=== PATIENT | female | born 1975 | race Caucasian/White ===

== ENCOUNTER → 2017-06-16 | Outpatient (CLI) | payer BC | LOC: RAD 09:57 | PROVIDERS: ATTEND Family Medicine | DX: Z12.31 Encounter for screening mammogram for malignant neoplasm of breast (principal) | CPT/HCPCS: 77067 ==

== ENCOUNTER → 2018-11-16 | Outpatient (CLI) | payer BC ==
--- NOTE | 2018-11-16 18:12 | Diagnostic Imaging Report ---
INDICATION: Routine screening. Comparison is made with prior mammograms from 06/16/2017 and 06/13/2016. 2-D and 3-D bilateral screening mammography was performed with computer-aided Detection (CAD) system. FINDINGS: Both breasts are heterogeneously dense, limiting the sensitivity of mammography. There is a nodular density identified in the central left breast at the nipple line on MLO view. This appears to be near the nipple line on the CC view as well, best seen on CC tomographic image 25. Additional views are recommended. Right breast is unremarkable. No suspicious calcifications are seen. IMPRESSION: Left breast density. Additional views are recommended for further evaluation. ACR BI-RADS Category 0: Incomplete. (Needs additional imaging evaluation). Result letter will be mailed to the patient. Note: At least 10% of breast cancer is not imaged by mammography. Dictated by: Dictated on workstation # [id number]
== END ==
LOC: RAD 15:23
PROVIDERS: ATTEND Family Medicine
DX: Z12.31 Encounter for screening mammogram for malignant neoplasm of breast (principal); R92.8 Other abnormal and inconclusive findings on diagnostic imaging of breast
CPT/HCPCS: 77067

== ENCOUNTER → 2018-11-24 | Outpatient (CLI) | payer BC ==
--- NOTE | 2018-11-24 19:16 | Diagnostic Imaging Report ---
INDICATION: Left breast density. Study was performed for further evaluation. COMPARISON: Correlation is made with diagnostic mammogram of earlier the same day. EXAMINATION: Limited left breast ultrasound. FINDINGS: Sonographic interrogation of the left breast was performed. No sonographic abnormality is seen. No solid or cystic mass is identified. IMPRESSION: No sonography abnormality is seen. A nodular density in the far posterior left breast at the nipple line does have benign features but followup left mammogram in six months is recommended to show continued stability. ACR BI-RADS Category 3: Probably benign findings. Result letter will be mailed to the patient. Note: At least 10% of breast cancer is not imaged by mammography. Dictated by: Dictated on workstation # [id number]
--- NOTE | 2018-11-24 19:45 | Diagnostic Imaging Report ---
INDICATION: Left breast density. Patient presents for additional views. Correlation is made with screening mammogram from 11/16/2018. Unilateral left 2-D and 3-D diagnostic mammography was performed including spot compression CC and ML views as well as conventional 90 degree lateral view. The current study was also evaluated with a Computer Aided Detection (CAD) system. FINDINGS: The density noted centrally in the left breast on MLO view appears to resolved with additional views and most likely represented superimposed tissue. Circumscribed density in the far posterior left breast near the chest wall at the nipple line on both the CC and MLO projection is present and may represent a small cluster of cysts. Ultrasound of this area is recommended. No suspicious calcifications are seen. IMPRESSION: 1. Density in the central left breast appears to resolved and most likely represents superimposed tissue. 2. Circumscribed perhaps a small cluster of cysts. Further evaluation of this area with ultrasound is recommended and will be performed today. ACR BI-RADS Category 0: Incomplete. (Needs additional imaging evaluation). Result letter will be mailed to the patient. Note: At least 10% of breast cancer is not imaged by mammography. Dictated by: Dictated on workstation # [id number]
== END ==
LOC: RAD 14:16
PROVIDERS: ATTEND Family Medicine
DX: R92.2 Inconclusive mammogram (principal)
CPT/HCPCS: 76642

== ENCOUNTER → 2019-05-05 | Outpatient (CLI) | payer BC ==
--- NOTE | 2019-05-05 13:21 | Diagnostic Imaging Report ---
PROCEDURE: US Thyroid. TECHNIQUE: Multiple real-time grayscale images were obtained of the thyroid in various projections. INDICATION: Enlarged thyroid. FINDINGS: The right lobe of the thyroid measures 5.4 x 1.6 1.9 cm and the left lobe measures 5.7 x 1.6 x 1.5 cm. Both lobes appear to be fairly homogeneous and are without evidence of discrete mass. There are two circumscribed hypoechoic nodules located within the isthmus. Each nodule measures approximately 5 mm in size. No dominant thyroid mass is identified. IMPRESSION: Subcentimeter isthmus nodules. The study is otherwise unremarkable. Dictated by: Dictated on workstation # [id number]
--- NOTE | 2019-05-05 20:23 | Diagnostic Imaging Report ---
INDICATION: Six-month follow-up of left breast nodule. Correlation is made with prior study from 11/16/2018. Unilateral left 2-D and 3-D diagnostic mammography was performed. The current study was also evaluated With a Computer Aided Detection (CAD) system. 3-D tomosynthesis was also performed and reviewed. FINDINGS: Scattered fibroglandular densities in the left breast are noted. The tiny ovoid nodule in the far posterior left breast best seen on the CC view appears smaller on today's study. No new mass is seen. No suspicious calcifications are identified. Left axilla is unremarkable. IMPRESSION: Stable to decrease in size of small nodule in the far posterior left breast when compared with examination from 11/16/2018. Additional six-month follow-up is recommended to show continued stability. ACR BI-RADS Category 3: Probably benign findings. Result letter will be mailed to the patient. Note: At least 10% of breast cancer is not imaged by mammography. Dictated by: Dictated on workstation # [id number]
== END ==
LOC: RAD 12:04
PROVIDERS: ATTEND Nurse Practitioner Family
DX: N63.20 Unspecified lump in the left breast, unspecified quadrant (principal); E04.2 Nontoxic multinodular goiter
CPT/HCPCS: 76536

== ENCOUNTER → 2020-01-02 | Outpatient (CLI) | payer BC ==
--- NOTE | 2020-01-02 14:33 | Diagnostic Imaging Report ---
INDICATION: Left breast nodule. Patient presents for six-month follow-up. Correlation is made with prior mammograms from 11/16/2018, 06/16/2017 as well as 05/05/2019. 2-D and 3-D bilateral diagnostic mammography was performed with CAD. Both breasts remain heterogeneously dense, limiting the sensitivity of mammography. Small density in the far posterior left breast at the nipple line on the cc view shows continued decrease in size consistent with benign etiology. No new mass or malignant appearing microcalcifications are seen. The axillae are unremarkable. IMPRESSION: BI-RADS Category 2 Continued decrease in size of small ovoid density in the far posterior left breast at the nipple line. This is consistent with benign etiology. Patient may return to routine annual screening mammography in December 2020. ACR BI-RADS Category 2: Benign findings. Result letter will be mailed to the patient. Note: At least 10% of breast cancer is not imaged by mammography. Dictated by: Dictated on workstation # [id number]
--- NOTE | 2020-01-02 15:21 | Diagnostic Imaging Report ---
PROCEDURE: US Thyroid. TECHNIQUE: Multiple real-time grayscale images were obtained of the thyroid in various projections. INDICATION: Thyroid nodules, follow-up. Correlation is made with prior thyroid ultrasound from 05/05/2019. FINDINGS: Right lobe of the thyroid measures 5.3 x 1.5 x 2.0 cm and the left lobe measures 5.1 x 1.1 x 1.7 cm. Isthmus is 7 mm in thickness. Previously noted subcentimeter nodules within the isthmus are again noted. These nodules appear to be similar in size when compared with prior exam. No new mass is detected. The right and left lobes show homogeneous echotexture. IMPRESSION: Stable subcentimeter isthmus nodules when compared with exam from 05/05/2019. Dictated by: Dictated on workstation # [id number]
== END ==
LOC: RAD 14:06
PROVIDERS: ATTEND Family Medicine
DX: E04.2 Nontoxic multinodular goiter (principal); N63.20 Unspecified lump in the left breast, unspecified quadrant
CPT/HCPCS: 76536; 77066

== ENCOUNTER → 2021-02-08 | Outpatient (CLI) | payer BC ==
--- NOTE | 2021-02-08 18:28 | Diagnostic Imaging Report ---
INDICATION: Routine screening. Comparison is made prior mammogram from 01/02/2020 and 11/16/2018. 2-D and 3-D bilateral screening mammography was performed with CAD. Both breasts are heterogeneously dense, limiting the sensitivity of mammography. The parenchymal pattern is stable. No mass or malignant appearing microcalcifications are seen. Axillae are unremarkable. IMPRESSION: BI-RADS Category 1 No mammographic features suspicious for malignancy are identified. ACR BI-RADS Category 1: Negative. Result letter will be mailed to the patient. Note: At least 10% of breast cancer is not imaged by mammography. Dictated by: Dictated on workstation # [id number]
== END ==
LOC: RAD 10:46
PROVIDERS: ATTEND Obstetrics & Gynecology
DX: Z12.31 Encounter for screening mammogram for malignant neoplasm of breast (principal)
CPT/HCPCS: 77063; 77067

== ENCOUNTER → 2021-08-09 | Outpatient (CLI) | payer BC ==
[~2021-08-09] MED LIST: CATHETER FLUSH 10 ML SYR IV PRN; HOLD METFORMIN - RECEIVED CONTRAST 20 ML VIAL IV SCH; IOHEXOL 350 MG/ML 100 ML (OMNIPAQUE 350) VIAL IV ONE; NS 100 ML (IVPB) BAG IV ONE
--- NOTE | 2021-08-09 09:03 | Diagnostic Imaging Report ---
PROCEDURE: CT abdomen and pelvis with contrast. TECHNIQUE: Multiple contiguous axial images were obtained through the abdomen and pelvis after administration of intravenous contrast. Auto Exposure Controls were utilized during the CT exam to meet ALARA standards for radiation dose reduction. All CT scans use one or more of the following dose optimizing techniques: automated exposure control, MA and/or KvP adjustment based on patient size and exam type or iterative reconstruction. INDICATION: Mid abdominal pain and 20 pound weight loss. No prior studies are available for comparison. FINDINGS: The lung bases are clear. The liver demonstrates diffuse low density consistent with hepatic steatosis. No discrete liver mass is detected. Gallbladder is unremarkable. No biliary ductal dilatation is seen. Pancreas and spleen are unremarkable. No adrenal mass is detected. Kidneys are unremarkable. Aorta is nonaneurysmal. The bowel loops appear to be normal caliber. There is no obstruction. No free fluid or fluid collection is identified apart from minimal free fluid in the pelvis, likely physiologic. Uterus and bladder are unremarkable. There is a cyst in the right ovary measuring approximately 19 mm in size. No abdominal or pelvic lymphadenopathy is detected. IMPRESSION: Essentially unremarkable CT of the abdomen and pelvis. There is hepatic steatosis and a right ovarian cyst. No acute feature is detected. Dictated by: Dictated on workstation # [id number]
== END ==
LOC: RAD 08:15
PROVIDERS: ATTEND Family Medicine
DX: K76.0 Fatty (change of) liver, not elsewhere classified (principal); N83.201 Unspecified ovarian cyst, right side
CPT/HCPCS: 74177

== ENCOUNTER → 2022-02-14 | Outpatient (CLI) | payer BC ==
--- NOTE | 2022-02-14 16:28 | Diagnostic Imaging Report ---
EXAMINATION: Cervical spine 2 or 3 views HISTORY: Right neck pain COMPARISON: None available. FINDINGS: Vertebral body heights and alignment are normal. Disc heights are normal. No perched facets. Prevertebral soft tissues are normal. No acute fracture is seen. IMPRESSION: No acute osseous abnormality of the cervical spine. Dictated by: Dictated on workstation # [id number]
== END ==
LOC: RAD 15:57
PROVIDERS: ATTEND Family Medicine
DX: M54.12 Radiculopathy, cervical region (principal)
CPT/HCPCS: 72040

== ENCOUNTER 2022-02-27 08:00 | Outpatient (RCR) | payer BC | END 2022-03-08 | disposition home or self-care (01) | PROVIDERS: ATTEND Family Medicine | DX: M54.2 Cervicalgia (principal); M79.601 Pain in right arm ==

== ENCOUNTER 2022-04-02 08:30 | Outpatient (RCR) | payer BC | END 2022-04-08 | disposition home or self-care (01) | PROVIDERS: ATTEND Family Medicine | DX: M54.2 Cervicalgia (principal); M79.601 Pain in right arm ==

== ENCOUNTER 2022-04-11 11:06 | Outpatient (RCR) | payer BC | END 2022-05-08 | disposition home or self-care (01) | PROVIDERS: ATTEND Family Medicine | DX: M54.2 Cervicalgia (principal); M79.601 Pain in right arm ==

== ENCOUNTER → 2022-04-22 | Outpatient (CLI) | payer BC ==
--- NOTE | 2022-04-22 10:48 | Diagnostic Imaging Report ---
PROCEDURE: MR imaging cervical spine without contrast. TECHNIQUE: Multiplanar, multisequence MR imaging of the cervical spine was performed without contrast. INDICATION: Neck pain and cervical radiculopathy. COMPARISON: Plain film examination of 02/14/2022. FINDINGS: There is straightening of the cervical lordosis. There is a levoscoliotic curvature at the cervicothoracic junction. The craniocervical junction relationships appear maintained. The facets are normally aligned. There are no marrow signal changes present to suggest an acute osseous injury or suspicious marrow replacing lesion. There are multilevel endplate changes, most advanced at C4-C5 and C6-C7. The visualized intracranial contents are unremarkable. The cervical cord demonstrates no abnormal expansion. There is mild prominence of the central canal of the cervical cord versus a tiny syrinx extending from the C6-C7 disc space level to T1-T2. This measures approximately 1.5 mm in maximum diameter. There is no cord edema. There are no findings of an abnormal epidural process. At C2-C3, there is no significant canal or foraminal stenosis. At C3-C4, there is spondylitic ridging without significant canal or foraminal stenosis. At C4-C5, there is disc bulging, endplate spurring, and a right paracentral inferiorly migrated disc extrusion. There is mild narrowing of the central canal with slight distortion of the ventral margins of the cervical cord. There is mild narrowing of the right neural foramen. At C5-C6, there is endplate ridging and minimal disc bulging without significant canal stenosis. There is minimal narrowing of the left neural foramen. At the C6-C7 level, there is a large disc extrusion with moderate narrowing of the central canal. Components of the disc extrusion also involve the neural foramen with severe right and moderate left foraminal stenosis. At C7-T1, there is no significant stenosis. The paraspinal soft tissues are unremarkable. The vascular flow voids are maintained. IMPRESSION: 1. Multilevel cervical degenerative disc disease with straightening of the cervical lordosis and a levoscoliotic curvature of the cervicothoracic junction. There is no acute osseous injury or suspicious marrow replacing lesion. 2. Small cervicothoracic syrinx versus prominence of the central spinal canal. There is no cord expansion or edema. 3. Background degenerative features with variable degrees of stenosis as detailed above. These are most significantly impacted by disc extrusions at the C4-C5 and C6-C7 levels as detailed above. Dictated by: Dictated on workstation # [id number]
== END ==
LOC: RAD 09:30
PROVIDERS: ATTEND Family Medicine
DX: M50.123 Cervical disc disorder at C6-C7 level with radiculopathy (principal); M48.02 Spinal stenosis, cervical region
CPT/HCPCS: 72141

== ENCOUNTER → 2022-05-23 | Outpatient (CLI) | payer BC ==
--- NOTE | 2022-05-23 13:04 | Diagnostic Imaging Report ---
INDICATION: Routine screening. Comparison is made with prior mammogram from 02/08/2021 and 01/02/2020. 2-D and 3-D bilateral screening mammography was performed with CAD. Both breasts are heterogeneously dense, limiting the sensitivity of mammography. The parenchymal pattern is stable. No mass or malignant-appearing microcalcifications are seen. Axillae are unremarkable. IMPRESSION: No mammographic features suspicious for malignancy are identified. ACR BI-RADS Category 1: Negative. Result letter will be mailed to the patient. Note: At least 10% of breast cancer is not imaged by mammography. BI-RADS Category 1 Dictated by: Dictated on workstation # [id number]
== END ==
LOC: RAD 07:38
PROVIDERS: ATTEND Obstetrics & Gynecology
DX: Z12.31 Encounter for screening mammogram for malignant neoplasm of breast (principal)
CPT/HCPCS: 77063; 77067

== ENCOUNTER → 2023-06-15 | Outpatient (CLI) | payer BC ==
--- NOTE | 2023-06-16 14:33 | Diagnostic Imaging Report ---
INDICATION: Routine screening. COMPARISON: 05/23/2022 and 02/08/2021. TECHNIQUE: 2D and 3D bilateral screening mammography was performed with CAD. FINDINGS: Both breasts are heterogeneously dense, limiting the sensitivity of mammography. The parenchymal pattern is stable. No mass or malignant-appearing microcalcifications are seen. The axillae are unremarkable. IMPRESSION: No mammographic features suspicious for malignancy are identified. ACR BI-RADS Category 1: Negative. Result letter will be mailed to the patient. Note: At least 10% of breast cancer is not imaged by mammography. Dictated by: Dictated on workstation # [id number]
== END ==
LOC: RAD 15:45
PROVIDERS: ATTEND Obstetrics & Gynecology
DX: Z12.31 Encounter for screening mammogram for malignant neoplasm of breast (principal)
CPT/HCPCS: 77063; 77067